=== PATIENT | female | born 1965 | race African-American/Black ===

== ENCOUNTER 2017-07-21 04:29 | Emergency (ER) | payer BC ==
[2017-07-21] MEDS ORDERED: 0.9 % SODIUM CHLORIDE 1,000 ML IV ONE (04:45)
[2017-07-21] MEDS ORDERED: ONDANSETRON HCL/PF 4 MG/ 2ML VIAL IVP ONE ×2 (04:46→06:15)
--- NOTE | 2017-07-21 04:48 | ED Physician Documentation ---
General Adult - HISTORIAN Historian: patient - HPI Stated Complaint: n/v/diarrhea Chief Complaint: General Adult Onset: days ago (6) Timing: still present Severity: moderate Further Comments: yes (Pt is a 51 yo female who has had n/v/diarrhea x 6 days. Pt has had no blood seen with bm. Pt has had >10 bm's/day. Pt is sometimes lightheaded with standing. FS [id number].) - ROS CONST: other (malaise) EYES/ENT: none CVS/RESP: none GI/: abdominal pain, vomiting, nausea, diarrhea MS/SKIN/LYMPH: none NEURO/PSYCH: dizziness - PAST HX Past History: asthma, other (DM, HLD, HTN, Lupus) Allergies/Adverse Reactions: Allergies Allergy/AdvReac Type Severity Reaction Status Date / Time No Known Allergies Allergy Verified 07/21/17 05:19 Home Medications: Ambulatory Orders Medication Instructions Recorded Benazepril HCl [Benazepril HCl] 20 mg PO D 08/13/12 Bupropion HCl [Bupropion HCl Sr] 150 mg PO D 08/13/12 Metformin HCl [Glucophage] 500 mg PO BID 08/13/12 Cyanocobalamin (Vitamin B-12) 1,000 mcg IJ 1T #1 vi 03/09/14 [Cyanocobalamin Injection] Ferrous Sulfate [Feosol] 325 mg PO DAILY u2 03/09/14 Levothyroxine Sodium 100 mcg PO DAILY u2 03/09/14 Lovastatin 20 mg PO DAILY u2 03/09/14 Fluticasone Propionate [Flonase 9.9 ml NS DIRECTED 07/04/17 Allergy Relief] Ciprofloxacin HCl [Cipro] 500 mg PO BID #10 tablet 07/21/17 Ondansetron HCl Rapdis [Zofran Odt] 4 mg PO Q8 PRN #8 tab 07/21/17 - SOCIAL HX Smoking History: cigarettes - FAMILY HX Family History: No - VITAL SIGNS Vital Signs: Vital Signs Temp Pulse Resp BP Pulse Ox 123/70 06/19/15 17:12 - REVIEWED ASSESSMENTS Nursing Assessment Reviewed: Yes Vitals Reviewed: Yes Progress - Progress Progress: NS 1 L IVF Zofran 4 mg IV Phenergan 25 mg in IVF Famotidine 20 mg IV improved. Rx Ciprofloxacin 500 mg. Take one every 12 hrs for 5 days. Rx Zofran 4 mg ODT. Take one every 8 hrs as needed for nausea/vomiting. Disp: 8 ED Results Lab/Radiology - Orders Orders: ED Orders Category Date Time Status CBC/PLATELET/DIFF Routine Lab 07/21/17 Ordered URINALYSIS Routine Lab 07/21/17 Ordered NORMAL SALINE @ 1000 MLS/HR ( 1000ml BOLUS) Med 07/21/17 04:45 Ordered 0.9 % Sodium Chloride [Normal Saline] 1,000 ml IV Q1H Ondansetron HCl/Pf [Zofran 4 mg/2 ml] Med 07/21/17 04:46 Once 4 mg IVP NOW ONE General Adult Physical Exam - PHYSICAL EXAM GENERAL APPEARANCE: mild distress EENT: eye inspection normal, pharynx normal NECK: normal inspection, supple RESPIRATORY: no resp distress, chest non-tender, breath sounds normal CVS: reg rate & rhythm, heart sounds normal ABDOMEN: soft, normal bowel sounds, tenderness (LLQ, mild) BACK: normal inspection, no CVA tenderness SKIN: warm/dry, normal color EXTREMITIES: non-tender, normal range of motion, no evidence of injury, no edema NEURO: oriented X3, motor nml, sensation nml Discharge Clincal Impression: Gastroenteritis Prescriptions: Ciprofloxacin HCl [Cipro] 500 mg PO BID #10 tablet Ondansetron HCl Rapdis [Zofran Odt] 4 mg PO Q8 PRN #8 tab PRN Reason: Nausea / Vomiting Referrals: Marjorie Hyde FNP [Primary Care Provider] - Condition: Stable Disposition: 01 HOME, SELF-CARE Decision to Admit: NO Decision Time: 07:00
[2017-07-21 04:52] LABS: BASOPHILS % 0.3 (0.0-1.5); EOSINOPHILS % 2.5 % (0.0-6.8); MEAN CORPUSCULAR VOLUME 90.8 fl (80.0-100.0); MONOCYTES % 2.9 % (0.0-11.0); NEUTROPHILS # 5.7 # k/uL (1.4-7.7)
[2017-07-21] MEDS ORDERED: PROMETHAZINE HCL 25 MG in 0.9 % SODIUM CHLORIDE 50 ML IV ONE (05:25)
[2017-07-21] MEDS ORDERED: PROMETHAZINE HCL 25 MG/ML VIAL ONE (05:26)
[2017-07-21] MEDS ORDERED: CIPROFLOXACIN/D5W 400 MG in PREMIX BAG 1 BAG IV ONE (06:17)
[2017-07-21] MEDS ORDERED: CIPROFLOXACIN/D5W 200 ML IV ONE (06:18)
[2017-07-21] MEDS ORDERED: FAMOTIDINE/PF 20 MG/2 ML VIAL IVP ONE (06:51)
[2017-07-21 07:54] VITALS: BP 117/67
[2017-07-22 09:26] LABS: APPEARANCE,URINE CLEAR (CLEAR); COLOR,URINE YELLOW (YELLOW); OCCULT BLOOD,URINE NEGATIVE (NEGATIVE); UROBILINOGEN URINE 0.2 Eu (0.2-1.0)
== END 2017-07-21 07:52 | disposition home or self-care (01) ==
LOC: ED 04:29
DX: K52.9 Noninfective gastroenteritis and colitis, unspecified (principal)
CPT/HCPCS: 81002; 85025; J0744; J2405; J2550; J7030; 96360; 96365; 96374; 96375; 96376; S0028; S1016